=== PATIENT | male | born 1990 | race Caucasian/White ===

== ENCOUNTER 2017-10-01 08:19 | Emergency (ER) | payer OTHER, MEDICAID ==
[~2017-10-01] VITALS: Ht 172.7 cm; Wt 88.8 kg
[~2017-10-01 08:19] MED LIST: LIDO20SO PO; NO HOME MEDS
[2017-10-01] MEDS ORDERED: PRED20TA PO (08:39)
[2017-10-01] MEDS ORDERED: ACYC-202 PO (08:39)
[2017-10-01 09:08] VITALS: BP 129/87
== END 2017-10-01 09:10 | disposition home or self-care (01) ==
LOC: ER 08:19
DX: G51.0 Bell's palsy (principal); F17.200 Nicotine dependence, unspecified, uncomplicated; F15.10 Other stimulant abuse, uncomplicated; Z79.899 Other long term (current) drug therapy
CPT/HCPCS: 99283

== ENCOUNTER 2019-05-04 21:47 | Emergency (ER) | payer MEDICAID, OTHER ==
[~2019-05-04] VITALS: Ht 172.7 cm; Wt 36.2 kg
[~2019-05-04 21:47] MED LIST changes: +ALBU8.5H8 INH
[2019-05-04 21:59] VITALS: BP 127/80
== END 2019-05-04 23:39 | disposition home or self-care (01) ==
LOC: ER 21:48
DX: H57.11 Ocular pain, right eye (principal); F20.9 Schizophrenia, unspecified; F15.90 Other stimulant use, unspecified, uncomplicated; Z79.899 Other long term (current) drug therapy
CPT/HCPCS: 99281

== ENCOUNTER 2019-10-19 19:14 | Emergency (ER) | payer MEDICAID, OTHER ==
[~2019-10-19] VITALS: Ht 172.7 cm; Wt 77.3 kg
[2019-10-19 19:20] VITALS: BP 141/61
--- NOTE | 2019-10-19 20:11 | NUR ---
PT IS BEING EVALUATED BY DR TORRES
--- NOTE | 2019-10-19 22:11 | NUR ---
splint checked by Dr Mathesw
== END 2019-10-19 22:14 | disposition home or self-care (01) ==
LOC: ER 19:14
DX: S62.009A Unspecified fracture of navicular [scaphoid] bone of unspecified wrist, initial encounter for closed fracture (principal); M25.512 Pain in left shoulder; M25.532 Pain in left wrist; F15.90 Other stimulant use, unspecified, uncomplicated; Z79.899 Other long term (current) drug therapy; W19.XXXA Unspecified fall, initial encounter; Y93.89 Activity, other specified; Y92.89 Other specified places as the place of occurrence of the external cause; Y99.8 Other external cause status
CPT/HCPCS: 29125; 29130; 73030; 73110; 99284

== ENCOUNTER 2021-03-05 10:15 | Emergency (ER) | payer MEDICAID, OTHER ==
[~2021-03-05] VITALS: Ht 172.7 cm; Wt 65.9 kg
[~2021-03-05 10:15] MED LIST changes: +ALBU8.5H17 INH; -ALBU8.5H8 INH
[2021-03-05 10:22] VITALS: BP 130/92
== END 2021-03-05 10:46 ==
LOC: ER 10:15
DX: Z00.8 Encounter for other general examination (principal); F15.90 Other stimulant use, unspecified, uncomplicated; Z79.899 Other long term (current) drug therapy
CPT/HCPCS: 99283

== ENCOUNTER 2021-04-16 04:57 | Emergency (ER) | payer MEDICAID ==
[~2021-04-16] VITALS: Ht 172.7 cm; Wt 63.6 kg
[2021-04-16 05:24] VITALS: BP 144/97
== END 2021-04-16 05:26 ==
LOC: ER 04:58
DX: S00.31XA Abrasion of nose, initial encounter (principal); M79.604 Pain in right leg; M79.605 Pain in left leg; F15.90 Other stimulant use, unspecified, uncomplicated; Z79.899 Other long term (current) drug therapy; X58.XXXA Exposure to other specified factors, initial encounter; Y93.89 Activity, other specified; Y92.89 Other specified places as the place of occurrence of the external cause; Y99.8 Other external cause status
CPT/HCPCS: 99283

== ENCOUNTER 2024-04-03 01:26 | Emergency (ER) | payer MEDICAID ==
[~2024-04-03] VITALS: Ht 172.7 cm; Wt 75.8 kg
[2024-04-03 01:31] VITALS: BP 160/94; TEMP 98.3
[2024-04-03] MEDS ORDERED: KEF125L PO (02:11)
[2024-04-03] MEDS ORDERED: SULF1TAB49 PO (02:11)
[2024-04-03] MEDS: sulfamethoxazole/trimethoprim DS (800/160mg) tablet PO ONE (02:36)
[2024-04-03] MEDS: cephalexin 250mg capsule PO ONE (02:37)
[2024-04-03 02:40] VITALS: PULSE 89; RESP 18; O2SAT 99
== END 2024-04-03 02:53 | disposition home or self-care (01) ==
LOC: ER 01:27
DX: L03.116 Cellulitis of left lower limb (principal); L03.115 Cellulitis of right lower limb; L03.114 Cellulitis of left upper limb; L03.113 Cellulitis of right upper limb; F20.9 Schizophrenia, unspecified; F15.90 Other stimulant use, unspecified, uncomplicated; Z79.899 Other long term (current) drug therapy; Z59.00 Homelessness unspecified
CPT/HCPCS: 99283

== ENCOUNTER 2024-10-02 04:53 | Emergency (ER) | payer MEDICAID ==
[2024-10-03] MEDS ORDERED: INSU100V5 IJ (00:24)
[2024-10-03] MEDS ORDERED: NPH,100V SQ (00:24)
[2024-10-04] MEDS ORDERED: THIA50TA10 PO (10:43)
[2024-10-04] MEDS ORDERED: FOLI0.4T6 PO (10:43)
[2024-10-04] MEDS ORDERED: NPH,100V SQ (11:19)
[2024-10-04] MEDS ORDERED: LANTUS SQ (15:13)
== END 2024-10-02 05:51 | disposition left against medical advice (07) ==
LOC: ER 04:53
DX: Z00.8 Encounter for other general examination (principal); Z53.21 Procedure and treatment not carried out due to patient leaving prior to being seen by health care provider